=== PATIENT | male | born 1985 | race Asian ===

== ENCOUNTER 2023-03-16 14:50 | Emergency (ER) | payer OTHER ==
[~2023-03-16] VITALS: Ht 180.3 cm; Wt 91.0 kg
[2023-03-16] MEDS ORDERED: LIDOCAINE 2% VISCOUS 15 ML SOLUTION UDCUP PO ONE (15:30)
[2023-03-16 19:48] VITALS: BP 129/79
== END 2023-03-16 20:00 | disposition home or self-care (01) ==
LOC: EMS 14:50
DX: R09.89 Other specified symptoms and signs involving the circulatory and respiratory systems (principal); Z98.890 Other specified postprocedural states
CPT/HCPCS: 70490; 99284; Z7502; Z7610